=== PATIENT | male | born 1995 | race Native Hawaiian/Other Pacific Islander ===

== ENCOUNTER 2022-08-05 13:49 | Emergency (ER) | payer OTHER ==
[~2022-08-05] VITALS: Ht 170.2 cm; Wt 90.7 kg
[2022-08-05 14:08] VITALS: TEMP 98.7
[2022-08-05 14:48] VITALS: BP 144/84
== END 2022-08-05 14:49 | disposition home or self-care (01) ==
LOC: ED 13:49
DX: M25.561 Pain in right knee (principal)
CPT/HCPCS: 99281

== ENCOUNTER 2022-10-02 14:20 | Emergency (ER) | payer OTHER ==
[~2022-10-02] VITALS: Ht 170.2 cm; Wt 90.7 kg
[2022-10-02 14:37] VITALS: TEMP 97.9
[2022-10-02 15:23] VITALS: BP 126/84
== END 2022-10-02 15:25 | disposition home or self-care (01) ==
LOC: ED 14:20
DX: H92.02 Otalgia, left ear (principal)
CPT/HCPCS: 99282

== ENCOUNTER 2022-11-09 13:30 | Emergency (ER) | payer OTHER ==
[~2022-11-09] VITALS: Ht 170.2 cm; Wt 143.5 kg
[2022-11-09 13:36] VITALS: BP 156/89; TEMP 98.2
[2022-11-09 14:53] LABS: PLATELET COUNT 234 K/uL (142-355)
[2022-11-09 14:58] LABS: POTASSIUM 4.4 mmol/L (3.6-5.2)
== END 2022-11-09 17:32 | disposition home or self-care (01) ==
LOC: ED 13:30
PROVIDERS: Emergency Medicine
DX: K29.60 Other gastritis without bleeding (principal)
CPT/HCPCS: 80053; 85027; 99283